=== PATIENT | male | born 1945 | race Caucasian/White ===

== ENCOUNTER → 2017-05-28 | Outpatient (CLI) | payer OTHER ==
[~2017-05-28] MED LIST: /ATOR40TA PO; /TAMS4CA PO; /WARF25TA; ACET65TA; ASPI81TA24 PO; CART120C PO; CYCL10TA PO; FLON0.05; HYDR-2808 PO; LOPR50TA PO; PRAD150C PO; PRIN5TAB PO; STOO100C PO; TRAM50TA2
[2017-05-28 14:47] LABS: ANION GAP 8 MEQ/L (8-16); BLOOD UREA NITROGEN 22 MG/DL (7-18); CALCIUM LEVEL 9.2 MG/DL (8.8-10.2); CARBON DIOXIDE LEVEL 28 MEQ/L (21-32); CHLORIDE LEVEL 103 MEQ/L (98-107); CREATININE FOR GFR 1.13 MG/DL (0.70-1.30); GLOMERULAR FILTRATION RATE > 60.0 (>42); GLUCOSE, FASTING 106 MG/DL (83-110); POTASSIUM SERUM 4.6 MEQ/L (3.5-5.1); SODIUM LEVEL 139 MEQ/L (136-145)
== END ==
LOC: M SMT 11:32
PROVIDERS: ATTEND Nurse Practitioner Women's Health
DX: N28.1 Cyst of kidney, acquired (principal); N32.89 Other specified disorders of bladder
CPT/HCPCS: 36415; 80048; 81001; 87086; 88108; G0463

== ENCOUNTER → 2017-06-11 | Outpatient (CLI) | payer OTHER ==
[~2017-06-11] MED LIST changes: +GASTROGRAFIN SOLUTION 30ML (Q9963) As Ordered ONE; +ISOVUE-370 76% 100ML VIAL (Q9967) As Ordered ONE
--- NOTE | 2017-06-12 03:43 | REP ---
Clinical: Complex renal cyst. Technique: Axial contrast enhanced images from the lung bases to the pubic symphysis using 100 ml Isovue 370 intravenous contrast material with precontrast, arterial phase, and delayed phase images of the abdomen as well as coronal and sagittal re-formations. Findings: A 8.5 cm mass extends from the lateral aspect of the left kidney which demonstrates irregular circumferential mural thickening, central low density and suggestions for mild peripheral enhancement. Finding must be considered neoplastic until proven otherwise. No significant associated adenopathy or perinephric stranding is appreciated. The kidneys also demonstrate bilateral nonenhancing simple cysts measuring up to approximately 3.7 cm in the upper pole right kidney and 3.0 cm upper pole left kidney. There is no evidence for hydroureteronephrosis, intrarenal or obstructing ureteral calculi. Liver, spleen, pancreas, gallbladder, and bilateral adrenal glands are normal. The enteric system is without obstruction or acute inflammatory process. Normal terminal ileum and appendix are identified in the right lower quadrant. Pelvis demonstrates collapsed bladder which cannot be further evaluated. Prostate gland and seminal vesicles are relatively normal for age. No ascites. No intraperitoneal or retroperitoneal adenopathy. Atherosclerotic changes of the aorta and vasculature noted without aneurysm or dissection. Skeletal structures demonstrate advanced degenerative disc osteophyte complex and bridging osteophytes throughout the visualized thoracolumbar spine. Lung bases demonstrate chronic interstitial changes without effusion, nodule or mass lesion. Impression: 1. 8.5 cm left renal mass with irregular mural thickening and subtle peripheral enhancement is consistent with renal cell carcinoma until proven otherwise. No associated adenopathy, perinephric stranding, or further secondary malignant/metastatic changes noted. 2. Bilateral simple renal cysts measuring up to 3.7 cm. 3. Bladder is collapsed and cannot be further evaluated. 4. Atherosclerotic changes to the vasculature and degenerative changes to the thoracolumbar spine. Signed by Ermias Rainey MD 06/12/2017 03:35 A
== END ==
LOC: M RAD 10:42
PROVIDERS: ATTEND Nurse Practitioner Women's Health
DX: N32.89 Other specified disorders of bladder (principal); N28.1 Cyst of kidney, acquired; N28.89 Other specified disorders of kidney and ureter
CPT/HCPCS: 74178; Q9967

== ENCOUNTER 2017-07-20 06:55 | Inpatient (IN) | payer OTHER ==
[~2017-07-20] VITALS: Ht 177.8 cm; Wt 117.5 kg
[~2017-07-20 06:55] MED LIST changes: -GASTROGRAFIN SOLUTION 30ML (Q9963) As Ordered ONE; -ISOVUE-370 76% 100ML VIAL (Q9967) As Ordered ONE
[2017-07-20] MEDS ORDERED: LR 1,000 ML IV SCH ×2 (07:00→16:00)
[2017-07-20] MEDS ORDERED: LIDOCAINE 1% SDV INJ 30 ML VIAL As Ordered ONE (08:44)
[2017-07-20] MEDS ORDERED: BUPIVACAINE HCL 0.25% 30 ML VIAL As Ordered ONE (08:44)
[2017-07-20] MEDS ORDERED: ASPIRIN 81 MG CHEW TABLET PO ONE (09:00)
[2017-07-20] MEDS: NS 1,000 ML IV SCH ×2 (09:02→17:02)
[2017-07-20] MEDS ORDERED: ETOMIDATE INJ 20MG/10ML VIAL As Ordered ONE (09:08)
[2017-07-20] MEDS ORDERED: PERCOCET 5MG/325MG TAB PO PRN ×2 (09:15→16:00)
[2017-07-20] MEDS ORDERED: ONDANSETRON 4MG/2ML VIAL (J2405) IV PRN ×2 (09:15→16:00)
[2017-07-20] MEDS ORDERED: ACETAMINOPHEN TAB 650MG DOSE (2X325MG) PO PRN (09:15)
[2017-07-20] MEDS ORDERED: MORPHINE 2 MG/ML 1ML SYRINGE IV PRN (09:15)
[2017-07-20] MEDS ORDERED: GLYCOPYRROLATE INJ 0.2 MG/ML 2 ML VIAL As Ordered ONE ×3 (09:40→15:29)
[2017-07-20] MEDS ORDERED: fentaNYL 250 MCG/5 ML INJECTION (J3010) As Ordered ONE (10:02)
[2017-07-20] MEDS ORDERED: VECURONIUM BROMIDE 10 MG VIAL As Ordered ONE (10:02)
[2017-07-20] MEDS ORDERED: PROPOFOL 500 MG/50 ML VIAL As Ordered ONE (10:02)
[2017-07-20] MEDS ORDERED: MIDAZOLAM INJ 2 MG/2 ML VIAL (J2250) As Ordered ONE (10:02)
[2017-07-20] MEDS ORDERED: ATROPINE SULF 0.4 MG/ML 1ML VIAL (J0461) As Ordered ONE (10:06)
[2017-07-20] MEDS ORDERED: dexameTHASONE 4 MG/ML 1ML VIAL (J1100) As Ordered ONE (10:07)
[2017-07-20] MEDS ORDERED: NEOSTIGMINE 10 MG/10 ML VIAL (J2710) As Ordered ONE (10:07)
[2017-07-20] MEDS ORDERED: LIDOCAINE 2% INJ 100 MG/5 ML SDV (FOR ANES.) As Ordered ONE (10:35)
[2017-07-20] MEDS ORDERED: ePHEDrine SULFATE 25 MG/5 ML(5MG/ML) SYRINGE As Ordered ONE (10:35)
[2017-07-20] MEDS ORDERED: ONDANSETRON 4MG/2ML VIAL (J2405) As Ordered ONE (10:36)
[2017-07-20] MEDS ORDERED: DESFLURANE 240 ML INHALANT As Ordered ONE (10:54)
[2017-07-20] MEDS ORDERED: HYDROmorphone HCL 2 MG/ML 1ML VIAL (J1170) As Ordered ONE (13:50)
[2017-07-20 15:55] LABS: MEAN CORPUSCULAR HGB CONC 33.7 g/dl (32.0-36.5); PLATELET COUNT, AUTOMATED 187 10^3/uL (150-450); RED CELL DISTRIBUTION WIDTH 12.7 % (11.5-14.5)
[2017-07-20] MEDS ORDERED: MEPERIDINE INJ 25 MG/ML VIAL (J2175) IV PRN (16:00)
[2017-07-20] MEDS ORDERED: fentaNYL 100 MCG/2 ML INJECTION (J3010) IV PRN (16:00)
[2017-07-20 16:17] LABS: CREATININE FOR GFR 1.66 MG/DL (0.70-1.30); GLOMERULAR FILTRATION RATE 43.6 (>42); POTASSIUM SERUM 4.9 MEQ/L (3.5-5.1)
[2017-07-20] MEDS ORDERED: CEFAZOLIN SOD 1 GM in APPROPRIATE DILUENT 1 EA IV SCH (17:30)
[2017-07-20 18:45] VITALS: BP 139/70
[2017-07-20 19:40] VITALS: BP 150/72
[2017-07-20 20:30] VITALS: BP 144/72
[2017-07-20] MEDS: TAMSULOSIN 0.4 MG CAP PO SCH (20:38)
[2017-07-20] MEDS: DOCUSATE SODIUM 100 MG CAP PO SCH (20:38)
[2017-07-20] MEDS: ATORVASTATIN 20 MG TAB PO SCH (20:38)
[2017-07-20] MEDS: CEFAZOLIN SOD 1 GM in APPROPRIATE DILUENT 1 EA IV SCH (20:38)
[2017-07-20] MEDS: diltiaZEM **CD** 180 MG CAP PO SCH (20:39)
[2017-07-20] MEDS: METOPROLOL TARTRATE 100 MG TAB PO SCH (20:39)
--- NOTE | 2017-07-20 21:53 | ROOPDOC ---
[facility] Report Of Operation Report of Operation DATE OF PROCEDURE: 07/20/2017 PREPROCEDURE DIAGNOSIS: Left renal mass. POSTPROCEDURE DIAGNOSIS: Left renal mass. PROCEDURE: Left robotic-assisted laparoscopic radical nephrectomy (adrenal- sparing). SURGEON: Yudith Dang MD CONCRETE CRAFTSMAN: Nakita Bal NP ANESTHESIA: General. OPERATIVE INDICATIONS: This is a 71 year old male who was recently found to have an 8cm cystic mass with solid and enhancing components on his left kidney on CT scan. Given, the likelihood of malignancy, it was recommended that he undergo the above procedure. DESCRIPTION OF PROCEDURE: The patient was brought to the operating room and general anesthesia was induced. Prophylactic antibiotics were infused. He then had a Bailon catheter placed under sterile conditions. He was then placed in the right lateral decubitus position with all pressure points appropriately padded. An axillary roll was placed. He was then secured to the table with tape. He was then prepped and draped in the usual sterile fashion. Initial incision was then for a 12 mm port in line with the 11th rib along the lateral rectus margin. The Veress needle was utilized to achieve pneumoperitoneum. A 12 mm port was then inserted and after which a camera was inserted. There were no apparent injuries from Veress needle or initial trocar placement. The remainder of the ports were then placed under direct vision, including a left hand robotic port just beneath the costal margin and a 5 mm wardrobe assistant port between the left hand port and the camera port. Another 15 mm wardrobe assistant port was placed just distal to the camera port and another robotic port was placed between the anterior-superior iliac spine and umbilicus. After all the ports were placed, the robot was then docked and the instruments were inserted. We began the dissection by mobilizing the left colon medially off of Gerota's fascia. The spleen was also mobilized cephalad off the upper part of Gerota's fascia. We then started dissecting on the lower pole of the kidney and the gonadal vein was located. The gonadal vein was then dissected and traced up towards the left renal vein. The gonadal vein was then ligated with clips and transected in between. Once that was done, we were able to identify both renal arteries just inferior to the renal vein. They were carefully dissected and then they were each ligated with 3 Weck clips and then transected in between, leaving two Weck clips on the stay side. At this point, the adrenal vein was also ligated with Weck clips and transected in between. The renal vein was then carefully dissected, and it was then ligated and transected with a 60 load Endo JOSE ALFREDO stapler. At this point, the rest of the hilum was completely taken. We then mobilized the adrenal gland off the upper pole of the kidney and spared the adrenal gland. The upper pole of the kidney was then completely mobilized along with the rest of the kidney until the kidney was only attached by the ureter distally. At this point, the ureter was then ligated with clips and transected in between. The gonadal vein was ligated and transected again in between Weck clips. At this point, the kidney and ureter were placed in an Endo Catch bag for future retrieval. At this point, we checked for hemostasis and hemostasis appeared excellent. We did administer Myles over the area of the hilum. Once this was done, the robot was undocked, and we utilized a Khushi fascial closure device to place an #0 Vicryl tie through the fascia of the camera port site. We then connected the skin incisions between the 15 mm wardrobe assistant ports and the right hand robotic port. We then dissected down through the subcutaneous layers and opened the fascia with electrocautery. At this point, the muscle was bluntly spread just enough so that we could then extract the kidney and ureter within the Endo Catch bag. Once this was done, we checked for hemostasis and it appeared excellent. The muscle was then reapproximated with [id number] #0 Vicryl suture. We then closed the fascia with a running #0 Vicryl suture. At this point, the abdomen was then re-insufflated, and we checked the extraction site and there were no intraabdominal contents caught within the extraction site closure. There was no bleeding from the extraction site either. At this point, we removed all of the other ports under direct vision, and there was no bleeding from the port sites. Once all the ports were removed, the previously placed #0 Vicryl free tie was tied down in the camera port site. We then irrigated all of the incisions with sterile saline. Once that was done, the subcutaneous tissue of the extraction site was reapproximated with interrupted #2-0 Vicryl suture. The skin of all incisions were then closed with running #4-0 Monocryl subcuticular suture. Once this was done, local anesthesia was applied and Dermabond was then applied to all the incisions. This marked the conclusion of the procedure. The patient was then taken out of the right lateral decubitus position, awakened from anesthesia and transported to the recovery room in stable condition. ESTIMATED BLOOD LOSS: 200 mL. COMPLICATIONS: None. SPECIMENS: Left kidney. PLAN: The patient will be kept in the hospital for the next few days. We will monitor him closely to see what his kidney function is and once his kidney function levels off, his pain is under good control and he is tolerating a regular diet, he will be ready for discharge. YUDITH DANG MD Jul 20, 2017 21:53
[2017-07-20 22:00] VITALS: BP 143/70
[2017-07-21 00:30] VITALS: BP 150/72
[2017-07-21] MEDS: NS 1,000 ML IV SCH ×3 (01:09→22:08)
[2017-07-21] MEDS: CEFAZOLIN SOD 1 GM in APPROPRIATE DILUENT 1 EA IV SCH (03:59)
[2017-07-21 06:00] VITALS: BP 159/77
[2017-07-21 08:08] LABS: MEAN CORPUSCULAR HGB CONC 33.7 g/dl (32.0-36.5); MEAN CORPUSCULAR VOLUME 94.9 fl (80.0-96.0); PLATELET COUNT, AUTOMATED 188 10^3/uL (150-450); WHITE BLOOD COUNT 12.2 10^3/uL (4.0-10.0)
[2017-07-21 08:31] LABS: CALCIUM LEVEL 8.7 MG/DL (8.8-10.2); CREATININE FOR GFR 1.89 MG/DL (0.70-1.30); GLOMERULAR FILTRATION RATE 37.5 (>42); POTASSIUM SERUM 4.6 MEQ/L (3.5-5.1)
[2017-07-21] MEDS: ASPIRIN 81 MG ENTERIC TAB PO SCH (08:34)
[2017-07-21] MEDS: TAMSULOSIN 0.4 MG CAP PO SCH ×2 (08:34→22:06)
[2017-07-21] MEDS: DOCUSATE SODIUM 100 MG CAP PO SCH ×2 (08:34→22:07)
[2017-07-21] MEDS: METOPROLOL TARTRATE 100 MG TAB PO SCH ×2 (08:37→22:06)
--- NOTE | 2017-07-21 08:52 | IPNPDOC ---
Assessment/Plan Date Seen The patient was seen on 07/21/17. Patient Summary This is a 71 y/o M POD1 s/p left robotic radical nephrectomy. Doing well this am. His Hb is stable at 13.1. His Cr is up to 1.9 and he is having good UOP. Plan/VTE VTE Prophylaxis Ordered?: Yes VTE Exclusion Mechanical Proph: N/A:VTE Prophy Ordered Plan/Urinary Catheter Urinary Catheter: D/C Ramos Plan - d/c ramos - strict I/Os - decrease IVF - continue home meds - SCDs, ambulate - incentive spirometry - clear liquid diet - advance diet as tolerated Subjective Review oF Systems Chief Complaint The patient is a 71-year-old male admitted with a reason for visit of Renal Mass. Events since Last Encounter No acute events o/n. Pain well controlled. Patient had mild nausea this morning, now resolved. No chest pain or SOB. No f/c/ns. Objective Physical Examination General Exam: Alert, Cooperative, No Acute Distress ABDOMEN EXAM: Soft, Tenderness (mildly tender), Other (incisions clean/dry/ intact) Skin Exam: Nl turgor and temperature Neuro Exam: Normal Speech Psych Exam: Mental status NL, Mood NL Other physical findings catheter in place, draining clear urine Vital Signs/I&O Vital Signs Date Time Temp Pulse Resp B/P (MAP) Pulse Ox O2 Delivery O2 Flow Rate FiO2 07/21/17 08:37 62 122/64 07/21/17 06:00 99.5 19 98 Nasal Cannula 3.0 I&O- Last 24 Hours up to 6 AM 07/22/17 06:00 Intake Total 875 ml Balance 875 ml Laboratory Data Labs 24H Laboratory Tests 2 07/20/17 15:46: Nucleated Red Blood Cells % (auto) 0.0, Anion Gap 10, Glomerular Filtration Rate 43.6, Blood Urea Nitrogen 24H, Creatinine 1.66H, Sodium Level 140, Potassium Level 4.9, Chloride Level 106, Carbon Dioxide Level 24, Calcium Level 9.0 07/21/17 07:47: Nucleated Red Blood Cells % (auto) 0.0, Anion Gap 10, Glomerular Filtration Rate 37.5L, Blood Urea Nitrogen 25H, Creatinine 1.89H, Sodium Level 139, Potassium Level 4.6, Chloride Level 106, Carbon Dioxide Level 23, Calcium Level 8.7L CBC/BMP Laboratory Tests 07/20/17 15:46 Red Blood Count 4.37, Mean Corpuscular Volume 95.0, Mean Corpuscular Hemoglobin 32.0, Mean Corpuscular Hemoglobin Concent 33.7, Red Cell Distribution Width 12.7 , Calcium Level 9.0 07/21/17 07:47 Red Blood Count 4.10 L, Mean Corpuscular Volume 94.9, Mean Corpuscular Hemoglobin 32.0, Mean Corpuscular Hemoglobin Concent 33.7, Red Cell Distribution Width 13.0, Calcium Level 8.7 L YUDITH DANG MD Jul 21, 2017 08:51
[2017-07-21 10:00] VITALS: BP 120/57
[2017-07-21] MEDS ORDERED: SIMETHICONE 80 MG CHEW TAB PO PRN (11:30)
[2017-07-21 14:00] VITALS: BP 119/59
[2017-07-21 18:00] VITALS: BP 130/62
[2017-07-21 22:00] VITALS: BP 143/65
[2017-07-21] MEDS: diltiaZEM **CD** 180 MG CAP PO SCH (22:07)
[2017-07-21] MEDS: ATORVASTATIN 20 MG TAB PO SCH (22:08)
[2017-07-22 06:00] VITALS: BP 113/59
[2017-07-22 06:23] LABS: MEAN CORPUSCULAR HEMOGLOBIN 31.9 pg (27.0-33.0); MEAN CORPUSCULAR HGB CONC 33.3 g/dl (32.0-36.5); MEAN CORPUSCULAR VOLUME 95.8 fl (80.0-96.0); PLATELET COUNT, AUTOMATED 115 10^3/uL (150-450); RED CELL DISTRIBUTION WIDTH 13.1 % (11.5-14.5)
[2017-07-22 06:41] LABS: CALCIUM LEVEL 8.4 MG/DL (8.8-10.2); CREATININE FOR GFR 1.78 MG/DL (0.70-1.30); GLOMERULAR FILTRATION RATE 40.2 (>42); POTASSIUM SERUM 4.1 MEQ/L (3.5-5.1)
[2017-07-22] MEDS ORDERED: MORPHINE 2 MG/ML 1ML SYRINGE IV PRN (07:30)
[2017-07-22] MEDS ORDERED: PERCOCET 5MG/325MG TAB PO PRN ×2 (07:30)
[2017-07-22] MEDS ORDERED: OXYC1TAB23 PO (08:34)
[2017-07-22] MEDS ORDERED: TYLE325T5 PO (08:34)
--- NOTE | 2017-07-22 08:53 | IPNPDOC ---
Assessment/Plan Date Seen The patient was seen on 07/22/17. Patient Summary This is a 71 y/o M POD2 s/p left robotic radical nephrectomy. Doing well this am. His Hb trended down some to 11.4, likely mostly dilutional. His Cr has improved some to 1.8. His UOP is good. Plan/VTE VTE Prophylaxis Ordered?: Yes VTE Exclusion Mechanical Proph: N/A:VTE Prophy Ordered Plan - d/c IVF - percocet prn pain - ambulate - incentive spirometry - SCDs - regular diet - plan for discharge home today Subjective Review oF Systems Chief Complaint The patient is a 71-year-old male admitted with a reason for visit of Renal Mass. Events since Last Encounter No acute events o/n. Good pain control w/ percocet. No n/v. Ambulating well. Passing flatus. No chest pain or SOB. No f/c/ns. Objective Physical Examination General Exam: Alert, Cooperative, No Acute Distress ABDOMEN EXAM: Soft, Tenderness (mildly tender), Other (incisions clean/dry/ intact) Skin Exam: Nl turgor and temperature Neuro Exam: Normal Speech Psych Exam: Mental status NL, Mood NL Vital Signs/I&O Vital Signs Date Time Temp Pulse Resp B/P (MAP) Pulse Ox O2 Delivery O2 Flow Rate FiO2 07/22/17 06:00 98.5 50 18 113/59 (77) 96 07/22/17 04:25 Room Air 07/21/17 13:22 3.0 I&O- Last 24 Hours up to 6 AM 07/23/17 06:00 Intake Total 750 ml Output Total 0 ml Balance 750 ml Laboratory Data Labs 24H Laboratory Tests 2 07/21/17 12:04: 07/22/17 05:46: Nucleated Red Blood Cells % (auto) 0.0, Anion Gap 5L, Glomerular Filtration Rate 40.2L, Blood Urea Nitrogen 27H, Creatinine 1.78H, Sodium Level 140, Potassium Level 4.1, Chloride Level 109H, Carbon Dioxide Level 26, Calcium Level 8.4L CBC/BMP Laboratory Tests 07/22/17 05:46 Red Blood Count 3.57 L, Mean Corpuscular Volume 95.8, Mean Corpuscular Hemoglobin 31.9, Mean Corpuscular Hemoglobin Concent 33.3, Red Cell Distribution Width 13.1, Calcium Level 8.4 L YUDITH DANG MD Jul 22, 2017 08:53
[2017-07-22] MEDS: DOCUSATE SODIUM 100 MG CAP PO SCH (09:00)
[2017-07-22 09:41] VITALS: BP 122/72
[2017-07-22 09:43] VITALS: BP 122/72
[2017-07-22 10:06] VITALS: BP 122/72
[2017-07-22] MEDS: METOPROLOL TARTRATE 100 MG TAB PO SCH (10:06)
[2017-07-22] MEDS: ASPIRIN 81 MG ENTERIC TAB PO SCH (10:06)
[2017-07-22] MEDS: TAMSULOSIN 0.4 MG CAP PO SCH (10:06)
[2017-07-22 11:26] LABS: HIV SCREEN CENTAUR SOURCE NEGATIVE (NEGATIVE)
--- NOTE | 2017-07-22 14:35 | DSES ---
DATE OF ADMISSION: 07/20/2017 DATE OF DISCHARGE: 07/22/2017 ADMISSION DIAGNOSIS: Left renal mass. 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 ADMISSION PHYSICIAN: Madhav Olivares MD DISCHARGE PHYSICIAN: Madhav Olivares MD PROCEDURE PERFORMED: Left robotic assisted laparoscopic radical nephrectomy on 07/20/2017. HISTORY OF PRESENT ILLNESS: This is a 71-year-old male who was found to have a large left renal mass concerning for malignancy. He was admitted to the hospital after undergoing the above listed procedure. HOSPITALIZATION COURSE: The patient was admitted to the hospital after undergoing the above listed procedure. His postoperative course was unremarkable. By postoperative day 1, he was up and ambulating. His catheter was removed and he voided without any difficulty. His creatinine did go up to 1.9 on postoperative day 1 from a baseline of approximately 1.4 to 1.5. The remainder of his blood work was within normal limits. By postoperative day 2, his pain was well controlled with oral pain medications. He was ambulating even better. His creatinine had started to trend down to 1.8 and he had excellent urine output. He was deemed ready for discharge on postoperative day 2. He was discharged home in good condition with a plan for him to followup in the clinic in approximately one week. REJI
== END 2017-07-22 10:51 | disposition home or self-care (01) | DRG 658 ==
LOC: M OR 06:55 → M MSPAV 18:45
PROVIDERS: ADMIT Urology; ATTEND Urology
PROC: 8E0W4CZ Robotic Assisted Procedure of Trunk Region, Percutaneous Endoscopic Approach (ICD-10-PCS; 2017-07-20)
PROC: 0TB74ZX Excision of Left Ureter, Percutaneous Endoscopic Approach, Diagnostic (ICD-10-PCS; 2017-07-20)
PROC: 0TT14ZZ Resection of Left Kidney, Percutaneous Endoscopic Approach (ICD-10-PCS; principal; 2017-07-20 08:45)
DX: C64.2 Malignant neoplasm of left kidney, except renal pelvis (principal)

== ENCOUNTER → 2017-07-27 | Outpatient (CLI) | payer OTHER ==
[~2017-07-27] MED LIST changes: +OXYC1TAB23 PO; +TYLE325T5 PO
[2017-07-27 14:14] LABS: MEAN CORPUSCULAR HEMOGLOBIN 31.9 pg (27.0-33.0); MEAN CORPUSCULAR HGB CONC 33.3 g/dl (32.0-36.5); MEAN CORPUSCULAR VOLUME 95.8 fl (80.0-96.0); PLATELET COUNT, AUTOMATED 217 10^3/uL (150-450); RED CELL DISTRIBUTION WIDTH 12.8 % (11.5-14.5); WHITE BLOOD COUNT 9.4 10^3/uL (4.0-10.0)
[2017-07-27 14:25] LABS: CALCIUM LEVEL 9.1 MG/DL (8.8-10.2); CREATININE FOR GFR 1.81 MG/DL (0.70-1.30); GLOMERULAR FILTRATION RATE 39.4 (>42)
== END ==
LOC: M SMT 09:30
PROVIDERS: ATTEND Urology
DX: C64.9 Malignant neoplasm of unspecified kidney, except renal pelvis (principal); Z90.5 Acquired absence of kidney

== ENCOUNTER → 2017-09-01 | Outpatient (CLI) | payer OTHER ==
[2017-09-01 18:47] LABS: ANION GAP 9 MEQ/L (8-16); BLOOD UREA NITROGEN 41 MG/DL (7-18); CALCIUM LEVEL 9.3 MG/DL (8.8-10.2); CARBON DIOXIDE LEVEL 23 MEQ/L (21-32); CHLORIDE LEVEL 106 MEQ/L (98-107); CREATININE FOR GFR 2.19 MG/DL (0.70-1.30); GLOMERULAR FILTRATION RATE 31.6 (>42); GLUCOSE, FASTING 97 MG/DL (83-110); SODIUM LEVEL 138 MEQ/L (136-145)
[2017-09-01 18:51] LABS: POTASSIUM SERUM 5.7 MEQ/L (3.5-5.1)
[2017-09-01 18:55] LABS: HEMATOCRIT 46.6 % (42.0-52.0); HEMOGLOBIN 15.2 g/dl (14.0-18.0); MEAN CORPUSCULAR HEMOGLOBIN 31.5 pg (27.0-33.0); MEAN CORPUSCULAR HGB CONC 32.6 g/dl (32.0-36.5); MEAN CORPUSCULAR VOLUME 96.5 fl (80.0-96.0); PLATELET COUNT, AUTOMATED 244 10^3/uL (150-450); RED BLOOD COUNT 4.83 10^6/uL (4.30-6.10); RED CELL DISTRIBUTION WIDTH 13.1 % (11.5-14.5); WHITE BLOOD COUNT 10.4 10^3/uL (4.0-10.0)
== END ==
LOC: M SMT 11:18
DX: C64.9 Malignant neoplasm of unspecified kidney, except renal pelvis (principal); Z90.5 Acquired absence of kidney
CPT/HCPCS: 80048

== ENCOUNTER → 2020-02-03 | Outpatient (CLI) | payer OTHER ==
[~2020-02-03] MED LIST changes: -/ATOR40TA PO; -/TAMS4CA PO; -/WARF25TA; +COUM1TAB18; +CYCL-707 PO; -CYCL10TA PO; +FLOM0.4C39 PO; +LIPI1TAB2 PO; +MM S100C PO; -PRAD150C PO; +PRAD150C6 PO; -STOO100C PO
--- NOTE | 2020-02-03 15:41 | REP ---
REASON: History of renal cell carcinoma and nephrectomy. COMPARISON: 01/11/2010, the only prior. There is cardiomegaly. There has been previous mediastinotomy. There are chronic basilar fibrotic changes. No acute patchy parenchymal opacities or pleural effusions have developed. There is an implanted device seen over the left anterior chest wall. The osseous structures are stable and intact. IMPRESSION: Stable appearing chronic changes. If clinical suspicion is high due to the patient's history of cancer, contrast enhanced CT of the chest is more sensitive. Electronically Signed by Stephan Humphries DO 02/03/2020 05:12 P
--- NOTE | 2020-02-03 16:36 | REP ---
REASON FOR EXAM: History of renal cell carcinoma with unilateral nephrectomy. PRIOR EXAMINATION: 06/11/2017 The lack of intravenous contrast significantly decreases the sensitivity of the exam. The lung bases are clear. Limited evaluation of the liver and spleen show no gross abnormalities or significant changes from the prior exam. Once again, there is evidence of cholelithiasis, status quo. Once again, there are multiple low-density structures arising from the right kidney, all of which appear stable in density but increased in size. Loops of bowel now occupy the left renal fossa due to previous nephrectomy. Limited evaluation of the pancreas and adrenal glands show them to be within normal limits and unchanged. Limited evaluation of the intra-abdominal bowel loops and their mesenteries show them to be within normal limits. No free fluid or free air is seen in the abdomen. There is no evidence of an intra-abdominal mass or adenopathy. Bone window technique throughout the exam shows the osseous structures to be stable and intact. Heavy degenerative changes are again seen involving the spine and sacroiliac joints, status quo. There is a focus of increased density seen in the region of the left posterior ilium, however, it was incompletely imaged on this abdomen only CT, and the imaged portion appears unchanged compared to the 05/10/[address] images. IMPRESSION: 1. There are multiple right renal cysts, but are unchanged in density although seen in a limited fashion when compared to the prior exam. They have increased in size but likely represent a combination of Bosniak class I and class II cysts. 2. Cholelithiasis, status quo. 3. Other findings as described above. Electronically Signed by Stephan Humphries DO 02/03/2020 05:13 P
== END ==
LOC: M RAD 14:19
PROVIDERS: ATTEND Urology
DX: C64.9 Malignant neoplasm of unspecified kidney, except renal pelvis (principal); Z90.5 Acquired absence of kidney; N28.1 Cyst of kidney, acquired; K80.20 Calculus of gallbladder without cholecystitis without obstruction

== ENCOUNTER → 2021-03-08 | Outpatient (REF) | payer OTHER ==
[~2021-03-08] MED LIST changes: -HYDR-2808 PO; +HYDR-4429 PO
== END ==
LOC: M LAB REF 17:44
PROVIDERS: ATTEND Internal Medicine Nephrology
DX: E83.42 Hypomagnesemia (principal)

== ENCOUNTER → 2021-06-06 | Outpatient (REF) | payer OTHER | LOC: M LAB REF 13:14 | PROVIDERS: ATTEND Internal Medicine Nephrology | DX: E83.42 Hypomagnesemia (principal) ==

== ENCOUNTER → 2022-10-27 | Outpatient (CLI) | payer OTHER ==
[~2022-10-27] MED LIST changes: +ALLO300T2 PO; +APAP500T10 PO; +ATOR80TA59 PO; +CLOP75TA2 PO; +FLUTISP; +LISI5TAB11 PO; +METO1TAB87 PO; +PANT40TA29 PO; +TAMS1CAP17 PO
== END ==
LOC: M LABSMTC 08:41
PROVIDERS: ATTEND Anesthesiology
DX: Z01.812 Encounter for preprocedural laboratory examination (principal)

== ENCOUNTER → 2022-10-29 | Day surgery (SDC) | payer OTHER ==
[~2022-10-29] VITALS: Ht 177.8 cm; Wt 113.8 kg
[~2022-10-29] MED LIST changes: +LIDOCAINE 2% 100MG/5ML SDV (FOR ANES.) As Ordered ONE; +NS 1,000 ML IV ONE; +propofoL 200 MG/20 ML VIAL As Ordered ONE
[2022-10-29 09:40] VITALS: BP 144/70
== END | disposition home or self-care (01) ==
LOC: M OPP 07:25
PROVIDERS: ATTEND Internal Medicine Gastroenterology
DX: D12.6 Benign neoplasm of colon, unspecified (principal); K64.0 First degree hemorrhoids; K57.30 Diverticulosis of large intestine without perforation or abscess without bleeding; K31.89 Other diseases of stomach and duodenum; E78.00 Pure hypercholesterolemia, unspecified; J44.9 Chronic obstructive pulmonary disease, unspecified; N40.0 Benign prostatic hyperplasia without lower urinary tract symptoms

== ENCOUNTER → 2024-05-18 | Outpatient (REF) | payer MEDICARE ==
[~2024-05-18] MED LIST changes: -LIDOCAINE 2% 100MG/5ML SDV (FOR ANES.) As Ordered ONE; -NS 1,000 ML IV ONE; -propofoL 200 MG/20 ML VIAL As Ordered ONE
[2024-05-18 18:53] LABS: TOTAL PROTEIN,RANDOM URINE 102.5 MG/DL (0.0-14.0)
[2024-05-18 18:57] LABS: CREATININE,RANDOM URINE 142.2 MG/DL
== END ==
LOC: M LAB REF 16:58
PROVIDERS: ATTEND Internal Medicine Nephrology
DX: N18.32 Chronic kidney disease, stage 3b (principal)

== ENCOUNTER → 2024-11-15 | Outpatient (REF) | payer MEDICARE ==
[2024-11-15 17:53] LABS: TOTAL PROTEIN,RANDOM URINE 53.3 MG/DL (0.0-14.0)
[2024-11-15 17:57] LABS: CREATININE,RANDOM URINE 119.8 MG/DL
== END ==
LOC: M LAB REF 16:59
PROVIDERS: ATTEND Internal Medicine Nephrology
DX: R80.1 Persistent proteinuria, unspecified (principal)